=== PATIENT | female | born 1940 | race Two or more races ===

== ENCOUNTER 2024-10-12 19:07 | Emergency (ER) | payer OTHER ==
[~2024-10-12] VITALS: Ht 172.7 cm; Wt 100.2 kg
[2024-10-12] MEDS ORDERED: ECOTRIN81 MG PO (19:34)
[2024-10-12] MEDS ORDERED: GAS RELIEF80 MG PO (19:34)
[2024-10-12] MEDS ORDERED: ZESTRIL40 M1 PO (19:34)
[2024-10-12] MEDS ORDERED: TOPROL XL100 M1 PO (19:34)
[2024-10-12] MEDS ORDERED: HYOSCYAMINE SULFATE 0.125 MG TAB.SUBL SL ONE (20:00)
[2024-10-12] MEDS ORDERED: ONDANSETRON HCL 2 MG/ML VIAL IV ONE (20:00)
[2024-10-12] MEDS ORDERED: FAMOtidine 10 MG/ML (4ML VIAL) IV PUSH ONE (20:00)
[2024-10-12] MEDS ORDERED: ONDANSETRON HCL 2 MG/ML VIAL ONE (20:14)
[2024-10-12] MEDS ORDERED: FAMOTIDINE/PF 20 MG/2 ML VIAL ONE (20:15)
[2024-10-12] MEDS ORDERED: HYOSCYAMINE SULFATE 0.125 MG TAB.SUBL ONE (20:15)
[2024-10-12] MEDS ORDERED: 0.9 % SODIUM CHLORIDE 1,000 ML IV ONE (20:15)
[2024-10-12 21:26] LABS: HEMATOCRIT 47.2 % (36.0-45.00); HEMOGLOBIN 15.9 g/dL (12.0-15.00); MEAN CELL VOLUME 89.7 fL (80.00-100.00); MEAN CORPUSCULAR HEMOGLOBIN 30.3 pg (27.00-32.0); MEAN CORPUSCULAR HGB CONC 33.8 g/dl (32.0-36.0); PLATELET COUNT 206 K/uL (150-450); RED BLOOD COUNT 5.26 M/uL (4.00-6.00)
[2024-10-12 21:53] LABS: ALBUMIN 3.5 gm/dL (3.4-5.0); BILIRUBIN TOTAL 0.51 mg/dL (0.3-1.2); CALCIUM 10.4 mg/dL (8.5-10.1); CREATININE SERUM 0.83 mg/dL (0.55-1.02); GFR 65.18; GLOBULINA 4.7 G/DL (2.4-3.5); POTASSIUM 3.99 mEq/L (3.5-5.1); TOTAL PROTEIN 8.2 gm/dL (6.4-8.2)
== END 2024-10-13 00:03 | disposition home or self-care (01) ==
LOC: ER 19:10
PROVIDERS: General Practice
DX: K29.70 Gastritis, unspecified, without bleeding (principal); R10.13 Epigastric pain; Z88.8 Allergy status to other drugs, medicaments and biological substances; I10 Essential (primary) hypertension
CPT/HCPCS: 36415; 93005; 96365; 96366; 99283; J2405; J3490; J7030